=== PATIENT | male | born 1960 | race Caucasian/White ===

== ENCOUNTER 2018-04-30 13:54 | Emergency (ER) | payer OTHER ==
[2018-04-30] MEDS ORDERED: ceFAZolin 2 GM in Premix Bag 1 BAG IV ONE (14:47)
--- NOTE | 2018-04-30 14:55 | EDM.PDOC ---
ED HPI GENERAL MEDICAL PROBLEM - General Chief Complaint: Skin Complaint Stated Complaint: CELLULITUS Time Seen by Provider: 04/30/18 14:40 Source of Information: Reports: Patient History Limitations: Reports: No Limitations - History of Present Illness INITIAL COMMENTS - FREE TEXT/NARRATIVE: 57-year-old male who has a significant laceration to the posterior lower left leg years ago and tends to develop sudden recurring cellulitis. This morning he noticed some tenderness in the groin lymph node, then pain developing with some slight swelling over the posterior aspect of his leg. He has been told by his primary providers to start oral cephalexin, and also get 2 g of Ancef IV from the emergency room. Onset: Sudden Duration: Hour(s): (Symptoms for the last 3-4 hours) Location: Reports: Lower Extremity, Left Associated Symptoms: Reports: Fever/Chills. Denies: Nausea/Vomiting, Shortness of Breath generalized Pain Score (Numeric/FACES): 4 - Related Data Allergies Allergy/AdvReac Type Severity Reaction Status Date / Time No Known Allergies Allergy Verified 04/30/18 14:23 Home Meds: Home Meds cephALEXin [Keflex] 1,000 mg PO ASDIRECTED 04/30/18 [History] Past Medical History HEENT History: Reports: Impaired Vision Dermatologic History: Reports: Cellulitis - Past Surgical History Musculoskeletal Surgical History: Reports: Other (See Below) Other Musculoskeletal Surgeries/Procedures:: lower left leg laceration from chainsaw Social & Family History - Tobacco Use Smoking Status *Q: Never Smoker - Recreational Drug Use Recreational Drug Use: No ED ROS GENERAL - Review of Systems Review Of Systems: See Below Constitutional: Reports: Fever, Chills, Malaise Respiratory: Denies: Shortness of Breath Cardiovascular: Denies: Chest Pain GI/Abdominal: Denies: Abdominal Pain, Nausea, Vomiting Skin: Denies: Erythema ED EXAM, SKIN/RASH Exam: See Below Exam Limited By: No Limitations General Appearance: Alert, No Apparent Distress Respiratory/Chest: No Respiratory Distress Cardiovascular: Regular Rate, Rhythm Extremities: Other (Patient does have a large well-healed scar on the dorsal aspect of the left leg. There is some tenderness and slight erythema to the localized veins in the lower calf.) Course - Vital Signs Last Recorded V/S: Last Vital Signs Temp 101.3 F H 04/30/18 14:27 Pulse 86 04/30/18 14:27 Resp 15 04/30/18 14:27 BP 126/84 04/30/18 14:27 Pulse Ox 99 04/30/18 14:27 - Orders/Labs/Meds Meds: Medications Discontinued Medications Generic Name Dose Route Start Last Admin Trade Name Gennaro PRN Reason Stop Dose Admin Cefazolin Sodium/Dextrose 2 gm 50 mls @ 100 mls/hr 04/30/18 14:47 04/30/18 15 :00 / Premix IV 04/30/18 15:16 100 mls/hr ONETIME ONE Administration - Re-Assessments/Exams Free Text/Narrative Re-Assessment/Exam: 04/30/18 14:54 Patient has a recurring well documented cellulitis of the left leg from a previous trauma. He has a tender left groin lymph node and a fever of 101.3, he certainly appears to be redeveloping cellulitis. He was given 2 g of IV Ancef and will continue his oral Keflex. Return if worsening despite treatment. Departure - Departure Time of Disposition: 15:31 Disposition: Home, Self-Care 01 Condition: Good Clinical Impression: Cellulitis of left lower leg - Discharge Information Instructions: Cellulitis, Adult, [id number] Referrals: PCP,None [Primary Care Provider] - Forms: ED Department Discharge Care Plan Goals: Continue with treatment with the Keflex as prescribed. Return if worsening despite taking antibiotics.
== END 2018-04-30 15:31 | disposition home or self-care (01) ==
LOC: JP.ED 13:54
DX: L03.116 Cellulitis of left lower limb (principal)
CPT/HCPCS: 96365; 99283; J0690